=== PATIENT | female | born 1980 | race Caucasian/White ===

== ENCOUNTER 2020-04-04 17:16 | Emergency (ER) | payer MEDICAID ==
[~2020-04-04] VITALS: Ht 154.9 cm; Wt 62.6 kg
--- NOTE | 2020-04-04 17:48 | Emergency Room Report ---
History of Present Illness General Chief Complaint: Chest Pain Source: Patient Present Illness HPI Disclaimer: Please note that this report is being documented using DRAGON technology. This can lead to erroneous entry secondary to incorrect interpretation by the dictating instrument. HPI: 39-year-old female presents for evaluation of chest pain and cough. Symptoms present 3 days. She reports a nonproductive cough and midsternal and right-sided chest pain. Chest pain is both aching and sharp. Exacerbated by bending and twisting motion as well as deep breathing. She reports intermittent shortness of breath. Denies prior history of cardiac disease, hypertension, heart failure. Tested negative for COVID-19 3 weeks ago. No known sick contacts. No recent travel. PMH: Rheumatoid arthritis PSH: Reviewed Allergies: Morphine, penicillin Social Hx: Reviewed Allergies: Coded Allergies: MORPHINE (Verified Allergy, Unknown, 04/04/20) PENICILLINS (Verified Allergy, Unknown, 04/04/20) COVID-19 Screening Contact w/high risk pt: No Experienced COVID-19 symptoms?: Yes COVID-19 Testing performed COMPENSATION DIRECTOR: No Patient History Last Menstrual Period: 03/30/2020 Now: No Review of Systems All Other Systems: negative except mentioned in HPI Physical Exam Vital Signs Date Time Temp Pulse Resp B/P (MAP) Pulse Ox O2 Delivery O2 Flow Rate FiO2 04/04/20 17:31 98.6 111 19 148/99 (115) 94 Room Air General: Awake and alert, anxious appearing HEENT: NC/AT. EOMI. Neck: Supple, trachea midline Chest Wall: Tender palpation over the sternum and entire chest wall particularly over the right side. Cardiovascular: Tachycardic. S1 and S2 normal. No murmur appreciated Resp: Normal work of breathing. No cough, wheezing or crackles appreciated Skin: Intact. No abrasions, laceration or rash over the exposed skin MSK: Normal tone and bulk. Moving all extremities. No obvious deformity. Neuro: Awake and alert. Mentating appropriately. Medical Decision Making Diagnostic Impression: Primary Impression: Chest pain Additional Impressions: Pleural effusion Left against medical advice ER Course 39-year-old female presents for evaluation of chest pain and shortness of breath. Differential includes was not limited to dehydration, viral syndrome, COVID-19 infection, pneumonia, effusion, pneumothorax, bronchitis, ACS, arrhythmia, GERD, musculoskeletal chest wall pain, myocarditis, endocarditis among others. EKG shows sinus rhythm, no ST segment changes, normal intervals. Chest x-ray concerning for mass or effusion in the right lower lobe. When I discussed this with the patient she states she had a diagnosis of a mass previously but never followed up. Due to concern over malignancy which would put her at risk for PE a CTA was ordered. No PE was identified but did show right-sided moderate to large effusion. Plan for admission however she elected to leave AGAINST MEDICAL ADVICE. She stated she needed to discuss further with her family regarding proper follow-up and next steps regarding the pleural effusion. She states she has had an effusion in the past but was not worked up for it. I discussed with her that she may need thoracentesis if you find the cause of this effusion whether it be infectious, malignancy or other. She understood the risks of leaving AGAINST MEDICAL ADVICE and is capable of making her own decisions. Admitting team notified of the patient's decision to leave AMA. Laboratory Tests Test 04/04/20 18:08 White Blood Count 4.0 K/UL (4.8-10.8) L Red Blood Count 4.86 M/UL (4.20-5.40) Hemoglobin 14.2 G/DL (12.0-16.0) Hematocrit 42.4 % (37.0-47.0) Mean Corpuscular Volume 87 FL (80-99) Mean Corpuscular Hemoglobin 29.2 PG (27.0-31.0) Mean Corpuscular Hemoglobin Concent 33.5 G/DL (32.0-36.0) Red Cell Distribution Width 13.5 % (11.6-14.8) Platelet Count 259 K/UL (150-450) Mean Platelet Volume 7.2 FL (6.5-10.1) Neutrophils (%) (Auto) 60.6 % (45.0-75.0) Lymphocytes (%) (Auto) 23.5 % (20.0-45.0) Monocytes (%) (Auto) 12.2 % (1.0-10.0) H Eosinophils (%) (Auto) 3.1 % (0.0-3.0) H Basophils (%) (Auto) 0.7 % (0.0-2.0) Sodium Level 133 MMOL/L (136-145) L Potassium Level 3.8 MMOL/L (3.5-5.1) Chloride Level 102 MMOL/L (98-107) Carbon Dioxide Level 25 MMOL/L (21-32) Anion Gap 6 mmol/L (5-15) Blood Urea Nitrogen 8 mg/dL (7-18) Creatinine 0.7 MG/DL (0.55-1.30) Estimated Glomerular Filtration Rate > 60 mL/min (>60) Glucose Level 88 MG/DL (74-106) Calcium Level 8.4 MG/DL (8.5-10.1) L Total Bilirubin 0.3 MG/DL (0.2-1.0) Aspartate Amino Transferase (AST) 12 U/L (15-37) L Alanine Aminotransferase (ALT) 15 U/L (12-78) Alkaline Phosphatase 88 U/L (46-116) Troponin I 0.000 ng/mL (0.000-0.056) Pro-B-Type Natriuretic Peptide 80 pg/mL (0-125) Total Protein 7.4 G/DL (6.4-8.2) Albumin 3.0 G/DL (3.4-5.0) L Globulin 4.4 g/dL Albumin/Globulin Ratio 0.7 (1.0-2.7) L Microbiology Date/Time Source Procedure Growth Status 04/04/20 18:32 Nasopharynx SARS-CoV-2 RdRp Gene Assay - Final Complete EKG Diagnostic Results Troponin ordered: Yes When was troponin ordered?: Apr 04, 2020 EKG Time: 18:04 Rate: normal Rhythm: NSR ST Segments: no acute changes Other Impression Sinus rhythm, normal axis, normal intervals, QTC 444 ms, no ST segment changes. Rhythm Strip Diag. Results Rhythm Strip Time: 18:04 EP Interpretation: yes Rate: 98 Rhythm: NSR, no PVC's, no ectopy Chest X-Ray Diagnostic Results Chest X-Ray Diagnostic Results : Chest X-Ray Ordered: Yes # of Views/Limited/Complete: 1 View Indication: Chest Pain Interpretation: no pneumothorax, other - Consolidation versus infiltrate versus effusion right lower lobe. Impression: Other - Mass versus effusion versus infiltrate right lower lobe Electronically Signed by: Electronically signed by Dr. Xiang Ni MD Last Vital Signs Date Time Temp Pulse Resp B/P (MAP) Pulse Ox O2 Delivery O2 Flow Rate FiO2 04/04/20 17:31 98.6 111 19 148/99 115 94 Room Air Disposition: AGAINST MEDICAL ADVICE Condition: Stable Xiang Ni MD Apr 04, 2020 17:48
[2020-04-04] MEDS ORDERED: Omnipaque 350 100ml vial INJ PRN (18:15)
[2020-04-04 18:25] VITALS: BP 146/89
[2020-04-04 18:35] LABS: BASOPHILS % (AUTO) 0.7 % (0.0-2.0); EOSINOPHILS % (AUTO) 3.1 % (0.0-3.0); HEMATOCRIT 42.4 % (37.0-47.0); HEMOGLOBIN 14.2 G/DL (12.0-16.0); LYMPHOCYTES % (AUTO) 23.5 % (20.0-45.0); MEAN CORPUSCULAR VOLUME 87 FL (80-99); MONOCYTES % (AUTO) 12.2 % (1.0-10.0); NEUTROPHILS % (AUTO) 60.6 % (45.0-75.0); PLATELET COUNT 259 K/UL (150-450); RED BLOOD COUNT 4.86 M/UL (4.20-5.40); RED CELL DISTRIBUTION WIDTH 13.5 % (11.6-14.8)
[2020-04-04] MEDS ORDERED: Ketorolac 30mg Inj IV ONE (18:45)
[2020-04-04] MEDS ORDERED: Tylenol #3 tab (300mg/30mg) ORAL ONE ×2 (18:45→21:30)
[2020-04-04 18:51] LABS: ANION GAP 6 mmol/L (5-15); BLOOD UREA NITROGEN 8 mg/dL (7-18); CALCIUM 8.4 MG/DL (8.5-10.1); CARBON DIOXIDE 25 MMOL/L (21-32); CHLORIDE 102 MMOL/L (98-107); CREATININE 0.7 MG/DL (0.55-1.30); POTASSIUM 3.8 MMOL/L (3.5-5.1); SODIUM 133 MMOL/L (136-145)
[2020-04-04 19:02] LABS: ALANINE AMINOTRANSFERASE 15 U/L (12-78); ALBUMIN/GLOBULIN RATIO 0.7 (1.0-2.7); ALKALINE PHOSPHATASE 88 U/L (46-116); ASPARTATE AMINO TRANSFERASE 12 U/L (15-37); BILIRUBIN,TOTAL 0.3 MG/DL (0.2-1.0)
[2020-04-04 20:00] VITALS: BP 129/84
--- NOTE | 2020-04-04 20:56 | Diagnostic Imaging Report ---
EXAM: CT Angiography Chest With Intravenous Contrast CLINICAL HISTORY: PE TECHNIQUE: Axial computed tomographic angiography images of the chest with intravenous contrast. CTDI is 34.0 mGy and DLP is 166.7 mGy-cm. One or more of the following dose reduction techniques were used: automated exposure control, adjustment of the mA and/or kV according to patient size, use of iterative reconstruction technique. MIP reconstructed images were created and reviewed. COMPARISON: No previous study. FINDINGS: Pulmonary arteries: No central pulmonary emboli. No peripheral pulmonary emboli. Aorta: Thoracic aorta is unremarkable. Thoracic aorta and its branches are unremarkable. No thoracic aortic aneurysm. Lungs: Presumed subsegmental atelectasis posteriorly in the mid lower lung zones. Presumed subsegmental atelectasis at the left lung base. The airway is patent. No mass. Pleural space: Moderate to large right pleural effusion is noted. No pneumothorax. Heart: Unremarkable. No cardiomegaly. No significant pericardial effusion. No evidence of RV dysfunction. Mediastinum: Small hiatal hernia and probable distal esophagitis. Bones/joints: No acute fracture. No dislocation. Soft tissues: Unremarkable. Lymph nodes: Unremarkable. No enlarged lymph nodes. Liver: Fatty infiltration of the liver. Adrenals: 1 cm probable left adrenal adenoma which requires no follow- up. IMPRESSION: 1. Moderate to large right pleural effusion. 2. Presumed atelectasis at the right lung base. Right lower lobe pneumonia cannot be excluded. 3. No central or peripheral pulmonary emboli detected. 4. Small hiatal hernia probable distal esophagitis. 5. Fatty infiltration of the liver.
[2020-04-04] MEDS ORDERED: ACETAMINOPHEN-1 EAC1 ORAL (21:52)
[2020-04-04] MEDS ORDERED: CARISOPRODOL350 MG ORAL (21:52)
[2020-04-04] MEDS ORDERED: GABAPENTIN800 MG ORAL (21:52)
--- NOTE | 2020-04-05 15:31 | Diagnostic Imaging Report ---
Indication: Cough Technique: One view of the chest Comparison: none Findings: There is a moderate right pleural effusion. The lungs and left pleural space are clear. The heart size is normal Impression: Right pleural effusion
--- NOTE | 2020-04-08 13:23 | Cardiology Report ---
APPROVED REPORT EKG Measurement Heart [id number] <Conclusion> Normal sinus rhythm Possible Left atrial enlargement Borderline ECG
== END 2020-04-04 22:20 | disposition left against medical advice (07) ==
LOC: EMR 18:32
DX: R07.89 Other chest pain (principal); J90 Pleural effusion, not elsewhere classified; Z53.29 Procedure and treatment not carried out because of patient's decision for other reasons; R05 Cough; R06.02 Shortness of breath; Z20.828 Contact with and (suspected) exposure to other viral communicable diseases; K76.0 Fatty (change of) liver, not elsewhere classified; K44.9 Diaphragmatic hernia without obstruction or gangrene; M06.9 Rheumatoid arthritis, unspecified; Z88.0 Allergy status to penicillin; Z88.5 Allergy status to narcotic agent
CPT/HCPCS: 36415; 71045; 71275; 80053; 83880; 84484; 85025; 93005; 96374; Q9967; U0002; Z7502; 99284